=== PATIENT | female | born 1990 | race Caucasian/White ===

== ENCOUNTER 2021-09-28 12:51 | Outpatient (REF) | payer BC, SELFPAY ==
[2021-09-28 14:12] LABS: Baso%MD 0.6 %; Eos%MD 0.2 %; Hemoglobin 14.5 g/dl (12.0-16.0); IG%MD 0.2 %; Lymph%MD 21.2 %; Mean Corpuscular HGB Conc 33.7 g/dl (31.0-35.0); Mean Corpuscular Hemoglobin 31.4 pg (27.0-33.0); Mean Corpuscular Volume 93.1 fL (80.0-98.0); Mean Platelet Volume 11.2 fL (9.4-12.3); Mono%MD 8.3 %; Neut%MD 69.5 %; Platelet Count 200 X10*3/uL (160-400); Red Blood Count 4.62 X10*6/uL (4.20-5.50); Red Cell Distribution Width 12.1 % (11.0-16.0); White Blood Count 6.4 X10*3/uL (4.8-10.8)
[2021-09-28 15:04] LABS: Band Neutrophils Percent 2 % (3-5); Lymphocytes Absolute Manual 1.5 X10*3/uL (1.2-4.9); Lymphocytes Percent Manual 24 % (20-40); Monocytes Absolute Manual 0.6 X10*3/uL (0.1-1.2); Monocytes Percent Manual 10 % (2-11); Neutrophils Absolute Manual 4.2 X10*3/uL (2.0-8.3); Neutrophils Percent Manual 64 % (45-73)
[2021-09-28 15:06] LABS: Platelet Estimate NORMAL (NORMAL); Platelet Morphology Comment NORMAL; RBC Morphology NORMAL
[2021-10-01 01:26] LABS: Immunoglobulin A 130 mg/dL (47-310)
[2021-10-01 12:57] LABS: Gliadin Deamidated IgA Ab 6.8 U/mL; Gliadin Deamidated IgG Ab 62.2 U/mL; Transglutaminase Ab IgG >250.0 U/mL; Transglutaminase IgA 93.4 U/mL
[2021-10-05 00:16] LABS: Endomysial IgA Antibody Positive (Negative)
[2021-10-05 00:36] LABS: Endomysial Titer 1:40 titer (<1:5)
== END 2021-09-28 12:52 | disposition home or self-care (01) ==
LOC: HO.10HDL 12:51
PROVIDERS: Visit Provider Internal Medicine
DX: K90.0 Celiac disease (principal); R10.32 Left lower quadrant pain
CPT/HCPCS: 36415; 82784; 83516; 85007; 85027; 86255; 86256

== ENCOUNTER 2021-10-18 15:49 | Outpatient (REF) | payer BC, SELFPAY ==
--- NOTE | ~2021-10-18 | US_ITS ---
EXAMINATION: US PELVIS CLINICAL INFORMATION: Left lower quadrant pain. COMPARISON: None TECHNIQUE: Ultrasound of the pelvis is performed using both transabdominal and transvaginal transducers along with Doppler. Transvaginal imaging is performed due to inadequate visualization transabdominally. FINDINGS: Uterus: The uterus is anteverted and measures 6.5 x 2.2 x 3.9 cm. There is an IUD in the uterus in satisfactory position. The endometrium does not appear thickened. The uterus is smooth in contour and has normal myometrial echogenicity. No visible fibroid. Adnexa: The ovaries are normal-appearing. Right ovary measures 2.2 x 1.5 x 2.1 cm. The right ovary is normal-appearing. Left ovary measures 3 x 1.6 x 2.1 cm. There is a 1.5 cm complex cyst with slightly thickened irregular wall. This may represent a corpus luteum. There is no fluid in the pelvis. US/US pelvic complete IMPRESSION: IUD in the uterus in satisfactory position. 1.5 cm minimally complex left ovarian cyst probably representing a physiologic corpus luteum.
== END 2021-10-18 15:50 | disposition home or self-care (01) ==
LOC: HO.US 15:49
PROVIDERS: Visit Provider Internal Medicine
DX: R10.32 Left lower quadrant pain (principal)
CPT/HCPCS: 76856

== ENCOUNTER 2021-10-25 08:21 | Day surgery (SDC) | payer BC, SELFPAY ==
[2021-10-18 14:28] VITALS: BMI 24.1
--- NOTE | 2021-10-25 08:09 | P.CONAN_ITS ---
[facility] Past Medical History Medical History Celiac disease Headache Functional capacity: independent ambulation Patient : No Family History Family history of problems with anesthesia: No Surgical History Surgical History [place] teeth extracted History of Problems with Anesthesia: No Social History Social History Are you a primary manager care management to a significant other at home: No Do you presently have visiting nurse or other home services: No Patient Tobacco Use Status: Never used Tobacco Have you been hit, kicked, punched, or otherwise hurt by someone within the past year? If so, by whom?: No Are you DNR?: No Advance Directives: No Advance Directives Information Provided: No Advance Directives on File: No Recently lost weight without trying: No Eating poorly because of decreased appetite: No Nutrition Risks: No Nutritional Risk Patient : No FDLMP: none- IUD Meds Allergies Allergy/AdvReac Type Severity Reaction Status Date / Time amoxicillin Allergy Hives Verified 10/18/21 14:25 clavulanic acid Allergy Hives Verified 10/18/21 14:25 [From Augmentin] Penicillins Allergy Hives Verified 10/18/21 14:25 Home Medications Medication Instructions Recorded Confirmed Last Taken Type multivitamin 1 tab PO DAILY 10/18/21 10/18/21 Unknown History Exam Exam Date and Time: October 25, 2021 0809 Height,Weight and Vital Signs: Height 5 ft 1 in Weight 58.06 kg Airway TM Dist: >3cm Neck ROM: Full Heart: RRR Lungs: CTA Assessment and Plan Final Anesthetic Review Family History of Problems with Anesthesia: No History of Problems with Anesthesia: No ASA Class: II Final Preanesthetic Review: No Changes in Pt Med Stat Patient Risk: Low Procedure Risk: Low Anesthetic Plan Anesthetic Plan: MAC: Disposition: Standard PACU
[2021-10-25 08:49] VITALS: BP 143/83; PULSE 91; RESP 16; TEMP 36.6; O2SAT 100
[2021-10-25] MEDS: Lactated Ringers 1,000 ML 999 ML IV (08:55)
[2021-10-25 09:04] LABS: UPreg QC Valid YES; Urine Pregnancy NEGATIVE (NEGATIVE)
[2021-10-25 10:00] VITALS: BP 99/53; PULSE 72; RESP 16; TEMP 36.6; O2SAT 98
--- NOTE | 2021-10-25 10:04 | P.BOP_ITS ---
Brief Operative Note Date of Service: 10/25/21 Pre-op diagnosis: Celiac disease Post-op diagnosis: other (Celiac disease) Procedure: EGD with biopsies Surgeon: Gian Oliver Anesthesia: MAC Was an Hospital Manager used for this Procedure?: No Estimated blood loss (mL): 2.0 Pathology: other (A. Descending duodenum B. EG Junction at 36cm) Condition: stable Disposition: PACU
[2021-10-25 10:14] VITALS: BP 135/83; PULSE 70; RESP 16; O2SAT 100
--- NOTE | 2021-10-25 10:16 | OP_ITS ---
SURGEON: Gian Oliver MD INDICATIONS: The patient presents for evaluation of probable celiac disease based on laboratories and clinical history. Full consent has been obtained from her for this, including risks of bleeding and perforation. PREOPERATIVE DIAGNOSIS: Celiac disease. POSTOPERATIVE DIAGNOSIS: PROCEDURE PERFORMED: Esophagogastroduodenoscopy with biopsies. ESTIMATED BLOOD LOSS: COMPLICATIONS: ANESTHESIA: Monitored anesthesia care. ASSISTANTS: SPECIMENS: POSTOPERATIVE DIAGNOSES: Celiac disease, minimal hiatal hernia. DESCRIPTION OF PROCEDURE: The patient was placed in the left lateral decubitus position. The Olympus video gastroscope was passed in the posterior oropharynx and upper esophagus under direct vision. The scope was passed slowly into the distal esophagus. The gastroesophageal junction appeared at 36 cm. There was a very minimal irregularity, but no evidence of esophagitis nor any definitive evidence of Tapia's mucosa. There was a minimal hiatal hernia. The scope was advanced to the pylorus and the duodenum was cannulated to the descending portion. The duodenum including the bulb was carefully inspected. The duodenum was notable for scalloping of duodenal folds and some edematous changes of the mucosa in general. There was no ulceration nor mass. Multiple biopsies were obtained from the descending duodenum. The duodenal bulb appeared normal without mass or ulceration. The scope was withdrawn back into the stomach. The gastric antrum and body appeared normal with good peristalsis. The scope was retroflexed visualizing the proximal stomach carefully which appeared normal, without any sign of mass or ulceration. The scope was straightened out and withdrawn back into the esophagus. Biopsies were obtained at the EG junction at 36 cm. Proximal to this, the esophageal mucosa appeared normal. The scope was withdrawn from the patient. She tolerated the procedure well and was returned to recovery area in stable condition. IMPRESSION: 1. Probable celiac disease. 2. Minimal hiatal hernia. PLAN: The results of the biopsies will be checked. She has been instructed to resume her gluten-free diet as that have been given her good relief of her previous GI symptoms. She will need to continue that long-term. Recent blood work for celiac disease remained quite elevated and we can repeat that when I see her again in the office in the spring for followup. Of note, she did have a recent pelvic ultrasound in regard to some left lower quadrant pain, which revealed a small cyst in the left ovary. I have given her a copy of the report and did instruct her to follow up with her IT ASSISTANT doctor in that regard for their evaluation of that to be sure no other studies or followup is needed. This has all been discussed with her significant other. She will see me in the spring for a followup visit. She was advised not to use any aspirin and NSAIDs for 1 week. MD TOOTIE Johnson/RHONDA / [phone]
--- NOTE | 2021-10-25 13:34 | HO.POSTANES ---
Post Anesthesia Evaluation Post Anesthesia Evaluation Vital Signs: Vital Signs Temp Pulse Resp BP Pulse Ox 10/25/21 10:14 70 16 135/83 100 10/25/21 10:00 98 F 72 16 99/53 L 98 10/25/21 08:49 97.9 F 91 16 143/83 H 100 Anesthesia: Monitored Mental Status: Awake Pain Control: Satisfactory Nausea/Vomiting: None Hydration: Adequate Anesthesia-Related Issues: No Anes. Related Issues
== END 2021-10-25 11:00 | disposition home or self-care (01) ==
PROVIDERS: Anesthesiology; Visit Provider Internal Medicine
PROC: 0DJ08ZZ Inspection of Upper Intestinal Tract, Via Natural or Artificial Opening Endoscopic (ICD-10-PCS; CPT 43235; principal; 2021-10-25 09:30)
DX: K90.0 Celiac disease (principal); K44.9 Diaphragmatic hernia without obstruction or gangrene; Z88.0 Allergy status to penicillin; Z88.1 Allergy status to other antibiotic agents
CPT/HCPCS: 43239; 81025; 88305

== ENCOUNTER 2024-04-04 09:32 | Outpatient (REF) | payer OTHER, SELFPAY ==
[2024-04-08 10:38] LABS: Immunoglobulin A 129 mg/dL (47-310)
[2024-04-08 22:03] LABS: Endomysial IgA Antibody Negative (Negative)
[2024-04-10 06:09] LABS: Gliadin Deamidated IgA Ab 3.4 U/mL; Gliadin Deamidated IgG Ab 5.7 U/mL; Transglutaminase Ab IgG 7.3 U/mL
== END 2024-04-04 09:33 | disposition home or self-care (01) ==
LOC: HO.10HDL 09:32
PROVIDERS: Visit Provider Internal Medicine
DX: R19.7 Diarrhea, unspecified (principal); K90.0 Celiac disease
CPT/HCPCS: 36415; 82784; 86231; 86258; 86364

== ENCOUNTER 2024-07-19 08:06 | Day surgery (SDC) | payer OTHER, SELFPAY ==
[2024-07-17 14:20] VITALS: BMI 25.7
--- NOTE | 2024-07-18 11:56 | HO.ANESPROP2 ---
Documented by User: Eli Harrison NP 07/18/24 11:56 HPI - Anesthesia Eval Consult details Narrative: 33yo F for Upper Endoscopy and Colonoscopy [facility] Past Medical History Medical History Left ovarian cyst Hiatal hernia Celiac disease Headache Family History Family history of problems with anesthesia: No Surgical History Surgical History History of esophagogastroduodenoscopy (EGD) [place] teeth extracted History of Problems with Anesthesia: No Social History Social History Are you a primary assurance services manager health care to a significant other at home: No Do you presently have visiting nurse or other home services: No Patient Tobacco Use Status: Never used Tobacco Use of substances other than those prescribed or required for medical reasons: No Have you been hit, kicked, punched, or otherwise hurt by someone within the past year? If so, by whom?: No Are you DNR?: No Advance Directives: No Advance Directives Information Provided: Yes Recently lost weight without trying: No Nutrition Risks: No Nutritional Risk Meds Allergies Allergy/AdvReac Type Severity Reaction Status Date / Time amoxicillin Allergy Hives Verified 10/18/21 14:25 clavulanic acid Allergy Hives Verified 10/18/21 14:25 [From Augmentin] Penicillins Allergy Hives Verified 10/18/21 14:25 Home Medications ?Medication ?Instructions ?Recorded ?Confirmed ?Last Taken ?Type multivitamin 1 tab PO DAILY 10/18/21 07/19/24 07/17/24 History Exam Height,Weight and Vital Signs: Height 5 ft 1 in Weight 61.689 kg Assessment and Plan Assessment Anesthesia Assessment: Chart Reviewed Final Anesthetic Review Family History of Problems with Anesthesia: No History of Problems with Anesthesia: No Documented by User: Jagruti Pugh MD 07/19/24 09:16 [facility] Past Medical History Medical History Left ovarian cyst Hiatal hernia Celiac disease Headache Family History Family history of problems with anesthesia: No Surgical History Surgical History History of esophagogastroduodenoscopy (EGD) C[place] teeth extracted History of Problems with Anesthesia: No Social History Social History Are you a primary assurance services manager health care to a significant other at home: No Do you presently have visiting nurse or other home services: No Patient Tobacco Use Status: Never used Tobacco Use of substances other than those prescribed or required for medical reasons: No Have you been hit, kicked, punched, or otherwise hurt by someone within the past year? If so, by whom?: No Are you DNR?: No Advance Directives: No Advance Directives Information Provided: Yes Recently lost weight without trying: No Nutrition Risks: No Nutritional Risk Meds Allergies Allergy/AdvReac Type Severity Reaction Status Date / Time amoxicillin Allergy Hives Verified 10/18/21 14:25 clavulanic acid Allergy Hives Verified 10/18/21 14:25 [From Augmentin] Penicillins Allergy Hives Verified 10/18/21 14:25 Home Medications ?Medication ?Instructions ?Recorded ?Confirmed ?Last Taken ?Type multivitamin 1 tab PO DAILY 10/18/21 07/19/24 07/17/24 History Exam Height,Weight and Vital Signs: Height 5 ft 1 in Weight 61.689 kg Vital Signs Temp Pulse Resp BP Pulse Ox O2 Del Method 07/19/24 08:32 97.6 F 77 16 126/78 100 Room Air Pertinent Lab Results Pertinent Lab Results: Lab Results 07/19/24 Range/Units 08:20 Urine Test NEGATIVE (NEGATIVE) Airway Mallampati Class: II TM Dist: >3cm Neck ROM: Full Loose/Missing/Broken Teeth: No (Denies broken, loose, missing teeth) Heart: RRR Lungs: CTAB Assessment and Plan Assessment Anesthesia Assessment: Anesthesia Plan Discussed and Chart Reviewed Final Anesthetic Review Family History of Problems with Anesthesia: No History of Problems with Anesthesia: No NPO: Yes ASA Class: II Final Preanesthetic Review: No Changes in Pt Med Stat, Meds/Allgs Chart Reviewed, Consent Obtained/Reviewed and Anes Risks/Benef Reviewed Patient Risk: Low Procedure Risk: Low Assessment/Block/Sedation in SS: Assess/Block/Sedation-SS Anesthetic Plan Anesthetic Plan: TIVA Disposition: Standard PACU
[2024-07-19 08:11] VITALS: BMI 24.6
[2024-07-19 08:32] VITALS: BP 126/78; PULSE 77; RESP 16; TEMP 36.4; O2SAT 100
[2024-07-19 08:35] LABS: UPreg QC Valid YES; Urine Pregnancy NEGATIVE (NEGATIVE)
[2024-07-19] MEDS: Lactated Ringers 1,000 ML 100 ML IVCONT (08:36)
[2024-07-19 10:15] VITALS: BP 102/64; PULSE 75; RESP 24; TEMP 36.7; O2SAT 99
--- NOTE | 2024-07-19 10:19 | PM.OP ---
Brief Operative Note Date of Service: 07/19/24 Pre-op diagnosis: Celiac disease, diarrhea Post-op diagnosis: other (Same, Hiatal hernia, R/O Microscopic colitis) Procedure: EGD with biopsies, Colonoscopy to the cecum and TI with biopsies Surgeon: Gian Oliver MD Anesthesia: MAC Was an Back Tender Fourdrinier used for this Procedure?: No Estimated blood loss (mL): 2.0 Pathology: other (A. Descending duodenum B. EG Junction at 35cm C. Ascending colon D. Terminal ileum E. Descending colon) Condition: stable Disposition: PACU
[2024-07-19 10:30] VITALS: BP 112/69; PULSE 67; RESP 20; TEMP 36.6; O2SAT 98
--- NOTE | 2024-07-19 10:44 | OP_ITS ---
DATE OF SERVICE: 07/19/2024 SURGEON: Gian Oliver MD INDICATIONS: The patient presents for evaluation of underlying history of celiac disease, abdominal discomfort, and diarrhea. Full consent has been obtained from her for this, including risks of bleeding and perforation. PREOPERATIVE DIAGNOSIS: POSTOPERATIVE DIAGNOSIS: PROCEDURE PERFORMED: Esophagogastroduodenoscopy with biopsies, and colonoscopy to the cecum and terminal ileum with biopsies. ESTIMATED BLOOD LOSS: COMPLICATIONS: ANESTHESIA: Monitored anesthesia care. ASSISTANTS: SPECIMENS: PREOPERATIVE DIAGNOSES: Celiac disease, abdominal discomfort, diarrhea. POSTOPERATIVE DIAGNOSES: Celiac disease, abdominal discomfort, diarrhea, small hiatal hernia, rule out microscopic colitis, small internal hemorrhoids. DESCRIPTION OF PROCEDURE: The patient was placed in the left lateral decubitus position. The Olympus video gastroscope was passed in the posterior oropharynx and upper esophagus under direct vision. The scope was passed slowly into the distal esophagus. The gastroesophageal junction appeared at 35 cm. There was some minimal irregularity consistent with possibly some reflux, but no evidence of any esophagitis nor Tapia mucosa. The scope entered the stomach. There was a small hiatal hernia. The scope was advanced to the pylorus and the duodenum was cannulated to the descending portion. The duodenum including the bulb appeared normal. The duodenal folds appeared normal. Multiple biopsies were obtained from the 2nd and 3rd portions of duodenum. The scope was withdrawn back to the stomach. The gastric antrum and body appeared normal with good peristalsis. The scope was retroflexed, visualizing the proximal stomach carefully, which appeared normal, without any sign of mass or ulceration. Scope was straightened and withdrawn back to the esophagus. Biopsies were obtained at the EG junction at 35 cm. Proximal to that, the esophageal mucosa appeared normal. The scope was withdrawn from the patient. She was turned around for the colonoscopy. The digital rectal exam revealed no abnormalities. The [employer] video pediatric colonoscope was then entered into the rectum and advanced easily to the cecum. Once in the cecum, I did identify normal-appearing cecal pouch with appendiceal orifice and a normal-appearing ileocecal valve. The terminal ileum was cannulated and appeared normal. Biopsies were obtained. The scope was withdrawn back in the colon. There was transillumination of light deep in the right lower quadrant. The entire cecum appeared normal. The scope was slowly withdrawn assessing all mucosal surfaces carefully. Preparation was excellent. I did not visualize any sign of polyps, colitis, nor angiodysplasias. Random biopsies were obtained in the ascending and descending colon. In the rectum, scope was retroflexed, visualizing minimal internal hemorrhoids, but no other pathology. The rectal mucosa appeared normal. The scope was straightened and withdrawn from the patient. She tolerated both procedures well and was returned to the recovery area in stable condition. IMPRESSION: 1. Small hiatal hernia. 2. History of celiac disease. 3. Rule out microscopic colitis. 4. Small internal hemorrhoids. PLAN: The results of the biopsy will be checked. She did have recent laboratories for the celiac disease and those were in the normal range. In general, she has been feeling well and she will continue her gluten free diet. She will be given an appointment to see me later in the year for followup. I would recommend a repeat colonoscopy at age 44 for screening. MD TOOTIE Johnson/RHONDA / [id number]
[2024-07-19 10:45] VITALS: BP 110/72; PULSE 60; RESP 16; TEMP 36.6; O2SAT 100
== END 2024-07-19 11:03 | disposition home or self-care (01) ==
PROVIDERS: Nurse Practitioner; PCP Family Medicine; Visit Provider Internal Medicine
PROC: (CPT 45380; principal; 2024-07-19 09:20)
DX: K90.0 Celiac disease (principal); R19.7 Diarrhea, unspecified; K64.8 Other hemorrhoids; R10.9 Unspecified abdominal pain; K21.9 Gastro-esophageal reflux disease without esophagitis; K44.9 Diaphragmatic hernia without obstruction or gangrene; N83.202 Unspecified ovarian cyst, left side; Z79.899 Other long term (current) drug therapy; Z88.0 Allergy status to penicillin; Z88.1 Allergy status to other antibiotic agents
CPT/HCPCS: 45380; 43239; 81025; 88305; 88313; J2250; J2704